=== PATIENT | female | born 1990 | race American Indian/Alaskan Native ===

== ENCOUNTER 2017-06-28 20:07 | Emergency (ER) | payer BC ==
[2017-06-28 20:30] VITALS: PULSE 73
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
[2017-06-28 22:00] VITALS: BP 120/81; RESP 18; TEMP 97.8; O2SAT 99
--- NOTE | 2017-06-29 14:16 | RAD ---
PROCEDURE: Chest right ribs 06/28/2017. Frontal view of the chest and two views right ribs performed. Note that chest radiograph is slightly limited due to partial obscuration of the right lung apex by overlying facial soft tissue and mandible artifact HISTORY: Pain COMPARISON: None available. TECHNIQUE: Frontal radiograph of the chest and multiple oblique radiographs of the right ribs were obtained. . Note that the study is slightly limited due to large body habitus and underpenetration with poor visualization of several mid to lower ribs. FINDINGS: RIGHT RIBS: No definitive evidence of acute right rib fracture seen within the limitation of the study. . LUNGS: Lung padilla clear. No infiltrate effusion or evidence of pneumothorax PLEURA: No pneumothorax or pleural fluid. CARDIOVASCULAR: Normal sized heart. No pulmonary vascular congestion. OTHER FINDINGS: None. IMPRESSION: Limited study as above. No definitive radiographic evidence of acute displaced right-sided rib fracture. . No evidence of acute infiltrate effusion or pneumothorax. If symptoms persist, worsen or occult fracture suspected clinically recommend followup CT scan of the chest.
== END 2017-06-28 21:56 | disposition home or self-care (01) ==
LOC: C.ER 20:07
DX: S20.211A Contusion of right front wall of thorax, initial encounter (principal); Y09 Assault by unspecified means